=== PATIENT | female | born 1980 | race African-American/Black ===

== ENCOUNTER → 2018-05-07 | Emergency (ER) | payer SELFPAY ==
[~2018-05-07] VITALS: Ht 162.6 cm; Wt 81.8 kg
[~2018-05-07] MED LIST: AMBIEN 10MG10 MG PO; BACTRIM DS 8001 TAB PO; LEXAPRO20 MG PO; TOPAMAX50 MG PO
[2018-05-07 16:31] VITALS: BP 139/80
[2018-05-07 18:43] VITALS: PULSE 80; TEMP 98.5
== END ==
LOC: COL.ER 16:19
DX: L02.411 Cutaneous abscess of right axilla (principal)

== ENCOUNTER 2019-01-26 07:53 | Emergency (ER) | payer SELFPAY ==
[~2019-01-26] VITALS: Ht 162.6 cm; Wt 72.7 kg
[2019-01-26 07:57] VITALS: TEMP 98.3
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
[2019-01-26] MEDS ORDERED: NORCO 325 MG-51 TAB PO (09:10)
[2019-01-26 09:20] VITALS: BP 139/96; PULSE 80
== END 2019-01-26 09:21 | disposition home or self-care (01) ==
LOC: COL.ER 07:53
DX: S05.11XA Contusion of eyeball and orbital tissues, right eye, initial encounter (principal); F32.9 Major depressive disorder, single episode, unspecified; F17.210 Nicotine dependence, cigarettes, uncomplicated; R40.2412 Glasgow coma scale score 13-15, at arrival to emergency department; Y04.8XXA Assault by other bodily force, initial encounter; Y07.03 Male partner, perpetrator of maltreatment and neglect

== ENCOUNTER 2019-03-17 17:33 | Emergency (ER) | payer SELFPAY ==
[~2019-03-17] VITALS: Ht 162.6 cm; Wt 68.2 kg
[~2019-03-17 17:33] MED LIST changes: +NORCO 325 MG-51 TAB PO
[2019-03-17 17:48] VITALS: BP 141/82; TEMP 98.5
[2019-03-17 20:00] VITALS: PULSE 80
== END 2019-03-17 20:00 | disposition home or self-care (01) ==
LOC: COL.ER 17:33
DX: S52.235A Nondisplaced oblique fracture of shaft of left ulna, initial encounter for closed fracture (principal); Y04.0XXA Assault by unarmed brawl or fight, initial encounter; Y92.009 Unspecified place in unspecified non-institutional (private) residence as the place of occurrence of the external cause
CPT/HCPCS: Q4021

== ENCOUNTER 2020-02-10 03:44 | Emergency (ER) | payer SELFPAY ==
[~2020-02-10] VITALS: Ht 165.1 cm; Wt 77.3 kg
[2020-02-10 03:55] VITALS: BP 132/81; TEMP 98.9
[2020-02-10 05:00] VITALS: PULSE 89
== END 2020-02-10 05:01 | disposition home or self-care (01) ==
LOC: COL.ER 03:44
DX: S90.32XA Contusion of left foot, initial encounter (principal); Y04.8XXA Assault by other bodily force, initial encounter; Y92.009 Unspecified place in unspecified non-institutional (private) residence as the place of occurrence of the external cause

== ENCOUNTER 2022-01-17 18:33 | Inpatient (IN) | payer SELFPAY ==
[2022-01-17] VITALS (26 sets, daily range): BP systolic 125–139; BP diastolic 86–96; PULSE 117–146; O2SAT 37–100
[~2022-01-17] VITALS: Ht 160 cm; Wt 79.0 kg
[2022-01-17 19:04] LABS: BASO % 0.2 % (0.0-2.0); EOS # 0.1 K/mm3 (0.0-0.7); EOS % 1.3 % (0.0-4.0); GRAN # 2.3 K/mm3 (1.4-6.5); GRAN % 42.6 % (42.2-75.2); HEMATOCRIT 40.4 % (37.0-47.0); HEMOGLOBIN 13.2 g/dl (12.5-16.0); LYMPH # 2.3 K/mm3 (1.2-3.4); LYMPH % 43.6 % (20.0-51.0); MEAN CELL VOLUME 83 fl (80.0-100.0); MEAN CORPUSCULAR HEMOGLOBIN 27 pg (27-31); MEAN CORPUSCULAR HGB CONC 33 g/dl (33.0-37.0); MEAN PLATELET VOLUME 10.3 fl (7.4-10.4); MONO # 0.7 K/mm3 (0.1-0.6); MONO % 12.1 % (1.7-9.3); PLATELET COUNT 238 K/mm3 (130-400); RED BLOOD COUNT 4.85 M/mm3 (4.10-5.30)
[2022-01-17 19:27] LABS: ALANINE AMINOTRANSFERASE 17 U/L (0-55); ALBUMIN 3.9 gm/dL (3.5-5.0); ALCOHOL(ethanol),MEDICAL 136 mg/dL (0-10); ALKALINE PHOSPHATASE 69 U/L (40-150); ANION GAP 11 mmol/L (7-16); AST,SGOT 18 U/L (5-34); BILIRUBIN,TOTAL 0.2 mg/dL (0.2-1.2); BLOOD UREA NITROGEN 10 mg/dL (7-19); CALCIUM 9.8 mg/dL (8.4-10.2); CARBON DIOXIDE 19 mmol/L (22-29); CHLORIDE 109 mmol/L (98-107); CREATININE, serum 0.87 mg/dL (0.57-1.11); GLUCOSE 100 mg/dL (70-99); POTASSIUM 4.4 mmol/L (3.5-4.5); SODIUM 139 mmol/L (136-145); TOTAL PROTEIN 8.9 gm/dL (6.2-8.1)
[2022-01-17 19:30] LABS: ACETAMINOPHEN < 1.0 ug/mL (10-30); SALICYLATE < 5.0 mg/dL (15.0-30.0)
[2022-01-17 19:34] LABS: COLLECTION METHOD CATHETER
[2022-01-17 19:40] LABS: URINE APPEARANCE Clear (CLEAR/HAZY); URINE COLOR Straw (YELLOW); URINE GLUCOSE Negative (NEGATIVE); URINE KETONE Negative (NEGATIVE); URINE NITRATE Negative (NEGATIVE); URINE PROTEIN(semi-quant) Negative (NEGATIVE); URINE UROBILINOGEN 0.2 E.U/dL (0.2-1.0)
[2022-01-17 19:41] LABS: URINE BLOOD Negative (NEGATIVE)
[2022-01-17 19:42] LABS: SQUAMOUS EPITHELIAL None Seen /hpf (0-10); URINE BACTERIA None Seen /hpf (NONE SEEN); URINE RBC None Seen /hpf (0-2)
[2022-01-17 19:47] LABS: TSH w REFLEX 1.116 uIU/mL (0.350-4.940)
[2022-01-17 19:58] LABS: TRICYCLIC ANTIDEPRESS URINE POSITIVE
--- NOTE | 2022-01-17 21:45 | NUR ---
UNABLE TO PERFORM ADMISSION SUICIDE ASSESSMENT/COVID SCREEN/ID SCREEN DUE TO PT BEING SEDATED/INTUBATED
[2022-01-17 22:25] LABS: ARTERIAL BLD GAS O2 SATURATION 99.6 % (92-100); ARTERIAL BLD GAS TCO2 CT 24.7; ARTERIAL BLOOD GAS BASE EXCESS -2.4 (-2-2); ARTERIAL BLOOD GAS HCO3 23.3 meq/L (22-26); ARTERIAL BLOOD GAS PCO2 43.9 mmHg (35-45); ARTERIAL BLOOD GAS pH 7.34 (7.35-7.45)
[2022-01-17 23:38] LABS: MAGNESIUM 2.1 mg/dL (1.6-2.6); PHOSPHOROUS 3.2 mg/dL (2.3-4.7)
[2022-01-18] VITALS (1412 sets, daily range): BP systolic 112–160; BP diastolic 70–103; PULSE 96–124; TEMP 98.4–99.3; O2SAT 84–100
[2022-01-18 01:05] LABS: CALCIUM 8.7 mg/dL (8.4-10.2); CREATININE, serum 0.73 mg/dL (0.57-1.11); POTASSIUM 3.8 mmol/L (3.5-4.5)
--- NOTE | 2022-01-18 05:06 | NUR ---
PT AWAKENING AT THIS TIME, VERY AGITATED. ATTEMPTING TO DISLODGE ETT, COUGHING, GAGGING, BITING ON ETT. NOT FOLLOWING COMMANDS OR RESPONDING TO NAME. NOTIFIED Liv WALSH APRN WHO INSTRUCTED TO START PROPOFOL GTT.
--- NOTE | 2022-01-18 05:10 | NUR ---
PT HAS HAD NO SEDATION UP UNTIL NOW. PT AWAKENING AND AGITATED.
[2022-01-18 05:35] LABS: ARTERIAL BLD GAS O2 SATURATION 98.9 % (92-100); ARTERIAL BLD GAS TCO2 CT 27.2; ARTERIAL BLOOD GAS BASE EXCESS 1.1 (-2-2); ARTERIAL BLOOD GAS HCO3 25.9 meq/L (22-26); ARTERIAL BLOOD GAS PCO2 41.7 mmHg (35-45); ARTERIAL BLOOD GAS pH 7.41 (7.35-7.45)
[2022-01-18 05:37] LABS: ARTERIAL BLOOD GAS PO2 150.8 mmHg (80-100)
[2022-01-18 06:47] LABS: BASO % 0.2 % (0.0-2.0); EOS % 0.1 % (0.0-4.0); GRAN # 7.5 K/mm3 (1.4-6.5); GRAN % 83.2 % (42.2-75.2); LYMPH % 10.7 % (20.0-51.0); MEAN CELL VOLUME 84 fl (80.0-100.0); MEAN CORPUSCULAR HGB CONC 32 g/dl (33.0-37.0); MONO # 0.5 K/mm3 (0.1-0.6); MONO % 5.5 % (1.7-9.3); PLATELET COUNT 212 K/mm3 (130-400); RED BLOOD COUNT 4.09 M/mm3 (4.10-5.30); REDCELL DISTRIBUTION WIDTH-CV 13.9 % (11.5-14.5)
[2022-01-18 06:50] LABS: HEMATOCRIT 34.2 % (37.0-47.0); MEAN CORPUSCULAR HEMOGLOBIN 27 pg (27-31)
[2022-01-18 06:55] LABS: CALCIUM 8.1 mg/dL (8.4-10.2); CREATININE, serum 0.74 mg/dL (0.57-1.11); POTASSIUM 3.8 mmol/L (3.5-4.5)
[2022-01-18 07:20] LABS: MAGNESIUM 1.7 mg/dL (1.6-2.6); PHOSPHOROUS 4.1 mg/dL (2.3-4.7)
--- NOTE | 2022-01-18 07:28 | NUR ---
RECEIVED BEDSIDE REPORT FROM JEROME HERNANDEZ. PT IS ON VENTILATOR MEASURING 23 AT TEETH, FIO2 AT 30, TV AT 400, RATE 14, PEEP 5. OG TUBE IN PLACE MEASURING 50 AT TEETH, TO LIS W/ SMALL AMOUNT OF YELLOWISH GREEN DRAINAGE IN CANISTER. NS RUNNING AT 150ML HR, PROPOFOL RUNNING AT 9.1 ML/HR. SALINAS IN PLACE TO DEPENDENT DRAINAGE. BILATERAL SOFT WRIST RESTRAINTS IN PLACE.
--- NOTE | 2022-01-18 13:27 | NUR ---
sanitation worker hosing machinery left a message for patient's Aunt, Brenda Riley [phone] to call.
--- NOTE | 2022-01-18 16:41 | NUR ---
TUBE FEEDING ORDER DISCONTINUED PER TORRoberto Carlos FROM DR. DE LA VEGA PT WILL LIKELY BE EXTUBATED TOMORROW.
--- NOTE | 2022-01-18 23:43 | NUR ---
PT RESTING IN BED. NO DISTRESS NOTED. MILD GAG REFLEX NOTED. WATER RESEVOIR FULL. LINES TO SUCTION AND VENT CABLES/TUBING SECURE AND OUT OF REACH OF PT. NAME/RT WRITTEN ON BOARD. NO COMPLAINTS NO VOICED CONCERNS. NO COMPLICATIONS. RAINOUT IN VENT TUBING AND RESEVOIR EMPTIED. MOISTURIZER APPLIED TO LIPS. RESTRAINTS SECURE. VENT WHEELS LOCKED
[2022-01-19] VITALS (1134 sets, daily range): BP systolic 125–163; BP diastolic 81–103; PULSE 92–124; TEMP 98.1–99.5; O2SAT 32–100
--- NOTE | 2022-01-19 02:08 | NUR ---
MINIMAL SUCTIONED FROM MOUTH AND ETT. RESTRAINTS SECURE. HOB ELEVATED. WATER RESEVOIR FULL. TUBING AND SUCTION OUT OF REACH OF PT. AMBUBAG PLACED IN ROOM BY FLOW METER. NO DISTRESS NOTED. NO CHANGES. CONTINUE TO MONITOR
[2022-01-19 05:08] LABS: ARTERIAL BLD GAS O2 SATURATION 99.1 % (92-100); ARTERIAL BLOOD GAS BASE EXCESS -2.2 (-2-2); ARTERIAL BLOOD GAS HCO3 21.1 meq/L (22-26); ARTERIAL BLOOD GAS PCO2 29.1 mmHg (35-45); ARTERIAL BLOOD GAS pH 7.48 (7.35-7.45)
[2022-01-19 05:10] LABS: ARTERIAL BLOOD GAS PO2 151.8 mmHg (80-100)
[2022-01-19 06:30] LABS: CALCIUM 8.3 mg/dL (8.4-10.2); CREATININE, serum 0.73 mg/dL (0.57-1.11); POTASSIUM 3.9 mmol/L (3.5-4.5)
--- NOTE | 2022-01-19 06:30 | NUR ---
BEDSIDE SHIFT REPORT GIVEN. PATIENT INTUBATED. SEDATION OFF SINCE 544. PATIENT IS FOLLOWING COMMANDS AND REMAINS CALM. PATIENT HAS A SALINAS AND PIV ACCESS WITH NORMAL SALINE GOING. PATIENT VS ARE STABLE WITH SLIGHT TACHYCARDIA AND HYPERTENSION DUE TO BEING SLIGHTLY AWAKE WHILE INTUBATED. WILL CONTINUE TO MONITOR
[2022-01-19 06:38] LABS: BASO % 0.1 % (0.0-2.0); EOS # 0.1 K/mm3 (0.0-0.7); EOS % 0.7 % (0.0-4.0); GRAN # 4.1 K/mm3 (1.4-6.5); LYMPH % 29.5 % (20.0-51.0); MEAN CELL VOLUME 86 fl (80.0-100.0); MEAN CORPUSCULAR HGB CONC 32 g/dl (33.0-37.0); MEAN PLATELET VOLUME 10.6 fl (7.4-10.4); MONO # 0.6 K/mm3 (0.1-0.6); MONO % 9.4 % (1.7-9.3); PLATELET COUNT 190 K/mm3 (130-400); RED BLOOD COUNT 3.62 M/mm3 (4.10-5.30); REDCELL DISTRIBUTION WIDTH-CV 14.7 % (11.5-14.5)
[2022-01-19 06:45] LABS: HEMATOCRIT 31.2 % (37.0-47.0); HEMOGLOBIN 9.9 g/dl (12.5-16.0); MEAN CORPUSCULAR HEMOGLOBIN 27 pg (27-31)
[2022-01-19 06:59] LABS: MAGNESIUM 2.3 mg/dL (1.6-2.6); PHOSPHOROUS 2.2 mg/dL (2.3-4.7)
--- NOTE | 2022-01-19 17:00 | NUR ---
PATIENT EXTUBATED. EXTUBATED WITH NO COMPLICATIONS. PATIENT COMPLAINS OF SLIGHT DISCOMFORT IN RIGHT WRIST. RIGHT WRIST IV REMOVED. VS STABLE POST EXTUBATION. PATIENT IS ALERT AND ORIENTED WITH NO OTHER COMPLAINTS AT THIS TIME.
--- NOTE | 2022-01-19 18:54 | NUR ---
HAVING DIFFICULTY WITH SATURATIONS DUE TO PERFUSION. WHEN I AM ABLE TO GET A GOOD READING SATS ARE READING 95% TO 100% NO COMPLAINTS FROM PT
[2022-01-19 20:11] LABS: BASO % 0.2 % (0.0-2.0); EOS % 0.1 % (0.0-4.0); GRAN % 89.1 % (42.2-75.2); HEMOGLOBIN 10.2 g/dl (12.5-16.0); LYMPH # 0.8 K/mm3 (1.2-3.4); LYMPH % 7.2 % (20.0-51.0); MEAN CELL VOLUME 86 fl (80.0-100.0); MEAN CORPUSCULAR HEMOGLOBIN 27 pg (27-31); MEAN CORPUSCULAR HGB CONC 32 g/dl (33.0-37.0); MEAN PLATELET VOLUME 9.9 fl (7.4-10.4); MONO # 0.4 K/mm3 (0.1-0.6); MONO % 3.1 % (1.7-9.3); PLATELET COUNT 187 K/mm3 (130-400); RED BLOOD COUNT 3.75 M/mm3 (4.10-5.30); REDCELL DISTRIBUTION WIDTH-CV 14.6 % (11.5-14.5)
[2022-01-19 20:19] LABS: HEMATOCRIT 32.2 % (37.0-47.0)
[2022-01-19 20:24] LABS: CALCIUM 9.1 mg/dL (8.4-10.2); CREATININE, serum 0.79 mg/dL (0.57-1.11); POTASSIUM 3.8 mmol/L (3.5-4.5)
[2022-01-19 22:24] LABS: COLLECTION METHOD CATHETER
[2022-01-19 22:46] LABS: MUCOUS Present (NOT PRESENT); SQUAMOUS EPITHELIAL 0-2 /hpf (0-10); URINE BACTERIA None Seen /hpf (NONE SEEN); URINE RBC >50 /hpf (0-2)
[2022-01-19 22:47] LABS: URINE APPEARANCE Cloudy (CLEAR/HAZY); URINE COLOR Yellow (YELLOW)
[2022-01-19 22:48] LABS: PH 5.5 (5.0-8.5)
[2022-01-19 22:49] LABS: URINE BLOOD 2+ (NEGATIVE); URINE GLUCOSE Negative (NEGATIVE); URINE KETONE Negative (NEGATIVE); URINE NITRATE Negative (NEGATIVE); URINE PROTEIN(semi-quant) Negative (NEGATIVE); URINE UROBILINOGEN 0.2 E.U/dL (0.2-1.0)
[2022-01-20] VITALS (889 sets, daily range): BP systolic 111–200; BP diastolic 47–103; PULSE 90–117; TEMP 97.5–100.9; O2SAT 97–100
--- NOTE | 2022-01-20 01:47 | NUR ---
PT COMFORTABLY RESTING IN BED. NO DISTRESS. INTERMITTENT NON PRODUCTIVE COUGH NOTED. HOB ELEVATED SLIGHTLY. PT HAS BEEN ON RA MOST OF THE EVENING AND NOC. CONTINUE TO MONITOR FOR SIGNS OF RESP DISTRESS.AMBU BAG AT HEAD OF BED
[2022-01-20 06:31] LABS: MAGNESIUM 1.8 mg/dL (1.6-2.6); PHOSPHOROUS 3.5 mg/dL (2.3-4.7)
--- NOTE | 2022-01-20 07:00 | NUR ---
REPORT RECEIVED FROM JEROME HERNANDEZ; PATIENT DID WELL OVERNIGHT AND IS NO LONGER HAVING SUICIDAL IDEATIONS. VITAL SIGNS HAVE BEEN WITHIN NORMAL LIMITS AND PATIENT IS CURRENTLY RESTING IN BED WITH FLUIDS RUNNING THROUGH HER PERIPHERAL IV. PATIENT REMAINS ON SUICIDE PRECAUTIONS AND WILL BE SCREENED BY [facility] LATER TODAY.
[2022-01-20] MEDS ORDERED: CEFTIN500 MG PO (13:43)
--- NOTE | 2022-01-20 15:45 | NUR ---
PATIENT CARE TRANSFERRED TO [facility] AT APPROX 1540 THIS AFTERNOON. PATIENT WAS AMBULATORY AND VITAL SIGNS WERE WITHIN NORMAL LIMITS. POISON CONTROL CALLED EARLIER TODAY AND SIGNED OFF ON HER CASE.
== END 2022-01-20 15:37 | DRG 918 ==
LOC: COL.ER 18:33 → ICU 20:11 → EDBEDREQ 20:44 → ICU 01-20 15:37
PROVIDERS: Internal Medicine; Nurse Practitioner; Nurse Practitioner Family; Student in an Organized Health Care Education/Training Program; ADMIT Internal Medicine
PROC: 0BH17EZ Insertion of Endotracheal Airway into Trachea, Via Natural or Artificial Opening (ICD-10-PCS; principal; 2022-01-17)
PROC: 5A1945Z Respiratory Ventilation, 24-96 Consecutive Hours (ICD-10-PCS; 2022-01-17)
DX: T43.012A Poisoning by tricyclic antidepressants, intentional self-harm, initial encounter (principal); I48.92 Unspecified atrial flutter; N39.0 Urinary tract infection, site not specified; F32.A Depression, unspecified; F41.9 Anxiety disorder, unspecified; F10.129 Alcohol abuse with intoxication, unspecified; Y90.6 Blood alcohol level of 120-199 mg/100 ml; D64.9 Anemia, unspecified; Z72.89 Other problems related to lifestyle; Y92.89 Other specified places as the place of occurrence of the external cause
CPT/HCPCS: J0696; J1650; J2704; J3010; J3475; J7030; J7120